=== PATIENT | male | born 1945 | race Caucasian/White ===

== ENCOUNTER 2016-10-09 17:07 | Emergency (ER) | payer MEDICARE ==
[2016-10-09 18:08] LABS: BASOPHILS 0.1 % (0.0-2.0); EOSINOPHILS 0 % (0-7); HEMATOCRIT 41.4 % (42.0-54.0); HEMOGLOBIN 13.8 g/dL (13.5-17.5); IMMATURE GRANULOCYTES 0.4 % (0-5); LYMPHOCYTES 9.9 % (15-50); MCH 28.5 pg (26.0-34.0); MCHC 33.3 g/dL (31.0-37.0); MCV 85.5 fL (80.0-100.0); MEAN PLATELET VOLUME 10.3 fL (7.4-10.4); MONOCYTES 4.1 % (2-11); NEUTROPHILS 85.5 % (40-80); PLATELET COUNT 174 10x3/uL (130-400); RBC 4.84 10x6/uL (4.20-6.10); RDW 13.9 % (11.5-14.5); WBC 13.8 10x3/uL (4.8-10.8)
[2016-10-09 18:19] LABS: APPEARANCE CLEAR (CLEAR); BILIRUBIN 2+ (NEGATIVE); COLOR DK YELLOW (YELLOW); GLUCOSE NEGATIVE (NEGATIVE); KETONE NEGATIVE (NEGATIVE); LEUKOCYTE ESTERASE TRACE (NEGATIVE); NITRITE NEGATIVE (NEGATIVE); PROTEIN 1+ mg/dL (NEGATIVE); UROBILINOGEN NORMAL (NORMAL)
[2016-10-09 18:21] LABS: BACTERIA MODERATE /hpf (NONE SEEN); EPITHELIAL CELLS 0-5 /hpf (0-5); GRANULAR CAST 0-5 /lpf (NONE SEEN); HYALINE CAST 0-5 /lpf (NONE SEEN); MUCUS >1+ /lpf (NONE SEEN); RED CELLS - URINE 0-5 /hpf (0-5); WHITE CELLS - URINE 0-5 /hpf (0-5)
[2016-10-09 18:38] LABS: ALBUMIN 3.2 g/dL (3.4-5.0); ANION GAP 12.5 mmol/L (8-16); BILIRUBIN - TOTAL 1.13 mg/dL (0.2-1.3); CALCIUM 9.8 mg/dL (8.5-10.1); CARBON DIOXIDE 28.1 mmol/L (21.0-32.0); CREATININE - SERUM 1.7 mg/dL (0.6-1.3); POTASSIUM - SERUM 3.6 mmol/L (3.5-5.1); PROTEIN - SERUM 7.1 g/dL (6.4-8.2)
[2016-10-09 19:44] LABS: TROPONIN-I 0.447 ng/mL (0.000-0.060)
[2016-10-14 17:13] LABS: AEROBE ID Final report (()); RESULT 1 Streptococcus mitis (())
== END 2016-10-09 20:28 | disposition home or self-care (01) ==
LOC: D.ER 17:07
PROVIDERS: Family Medicine
DX: B34.9 Viral infection, unspecified (principal); I50.9 Heart failure, unspecified; S37.009A Unspecified injury of unspecified kidney, initial encounter; X58.XXXA Exposure to other specified factors, initial encounter; Y93.9 Activity, unspecified; Y92.9 Unspecified place or not applicable; I10 Essential (primary) hypertension; E11.9 Type 2 diabetes mellitus without complications

== ENCOUNTER 2017-02-18 15:15 | Inpatient (IN) | payer MEDICARE ==
[~2017-02-18] VITALS: Ht 182.9 cm; Wt 79.4 kg
[2017-02-18 15:31] VITALS: BP 120/77; BMI 23.8
[2017-02-18] MEDS ORDERED: ASPIRIN325 MG PO (15:34)
[2017-02-18] MEDS ORDERED: FUROSEMIDE40 MG PO (15:35)
[2017-02-18] MEDS ORDERED: LOVENOX INJ100 MG/ML SC (15:35)
[2017-02-18] MEDS ORDERED: NOVOLOG100 U/M1 SC (15:36)
[2017-02-18] MEDS ORDERED: LISINOPRIL2.5 MG PO (15:37)
[2017-02-18] MEDS ORDERED: PROTONIX40 MG PO (15:37)
[2017-02-18] MEDS ORDERED: K-DUR20 MEQ PO (15:39)
--- NOTE | 2017-02-18 18:04 | NUR ---
PT RESTING IN BED WITH EYES OPEN CALL LIGHT IN REACH NO PROBLEMS WILL MONITER
--- NOTE | 2017-02-18 19:35 | NUR ---
ASSISTED PATIENT TO AMBULATE TO BR, AND BACK TO BED AFTER TOILETING. DENIES CURRENT NEEDS.
[2017-02-18 21:45] VITALS: BP 128/62
--- NOTE | 2017-02-18 21:45 | NUR ---
ASSESSMENT AND HS MEDS COMPLETE. DENIES NEEDS. FSBS 116. GAVE PATIENT HS SNACK.
--- NOTE | 2017-02-18 23:35 | NUR ---
RESTING QUIETLY IN BED ON LEFT SIDE, EYES CLOSED. NO DISTRESS EVIDENT.
--- NOTE | 2017-02-19 02:30 | NUR ---
PATIENT BRIEFLY AWAKE. DENIES NEEDS. CHECKED TO INSURE HE HAD A LIFEVEST BATTERY CHARGING.
--- NOTE | 2017-02-19 04:45 | NUR ---
RESTING IN BED ON RIGHT SIDE SINCE ASSIST UP TO BR TO URINATE 0330 HRS. RESPIRATIONS UNLABORED.
--- NOTE | 2017-02-19 05:40 | NUR ---
FSBS 109. ASSISTED PATIENT UP TO BR AND BACK TO BED AFTER TOILETING. PATIENT BOTH URINATED AND HAD A MEDIUM FORMED, LIGHT BROWN STOOL. NOW BACK SEATED AT BEDSIDE FOR A CHANGE OF POSITION.
[2017-02-19 07:20] VITALS: BP 125/77
--- NOTE | 2017-02-19 07:20 | NUR ---
RESTING QUIETLY IN BED.DENIES NEEDS.ASSESSMENT COMPLETED.LIFE VEST DEFIBRILLATOR ON.WILL CONTINUE WITH PLAN OF CARE.CL IN EASY REACH,BED IN LOW POSITION.
[2017-02-19 09:34] LABS: BASOPHILS 0.6 % (0-2); EOSINOPHILS 7.5 % (0-7); HEMATOCRIT 44.1 % (42.0-54.0); HEMOGLOBIN 14.3 g/dL (13.5-17.5); IMMATURE GRANULOCYTES 0.6 % (0-5); LYMPHOCYTES 28.5 % (15-50); MCH 27.6 pg (26.0-34.0); MCHC 32.4 g/dL (31.0-37.0); MCV 85.1 fL (80.0-100.0); MEAN PLATELET VOLUME 10.9 fL (7.4-10.4); MONOCYTES 4.6 % (2-11); NEUTROPHILS 58.2 % (40-80); RBC 5.18 10x6/uL (4.20-6.10); RDW 15.3 % (11.5-14.5); WBC 5.4 10x3/uL (4.8-10.8)
[2017-02-19 09:36] LABS: CALC OSMOLALITY 282 mosm/kg (275-300); CALCIUM 9.3 mg/dL (8.5-10.1); CARBON DIOXIDE 26.6 mmol/L (21.0-32.0); CHLORIDE - SERUM 105 mmol/L (98-107); GLUCOSE 158 mg/dL (74-106); POTASSIUM - SERUM 4.1 mmol/L (3.5-5.1); SODIUM 140 mmol/L (136-145); UREA NITROGEN 16 mg/dL (7-18); eGFR NON AFRICAN AMERICAN 78 mL/min (90-120)
[2017-02-19 09:41] LABS: PLATELET COUNT 234 10x3/uL (130-400)
[2017-02-19 13:15] VITALS: Ht 182.9 cm; Wt 79.4 kg
--- NOTE | 2017-02-19 19:30 | NUR ---
LYING ON LEFT SIDE, AWAKE. DENIES NEEDS.
[2017-02-19 21:30] VITALS: BP 135/80
--- NOTE | 2017-02-19 21:30 | NUR ---
ASSESSMENT AND HS MEDS COMPLETE. FSBS 159. GAVE PATIENT 4 UNITS HUMALOG INSULIN SC IN LEFT ARM PER S/S. GAVE PATIENT HS SNACK AND ASSISTED HIM TO AMBULATE SBA c R/W TO BR COMMODE TO URINATE, AND THEN BACK TO BED.
--- NOTE | 2017-02-19 22:20 | NUR ---
RESTING QUIETLY ON RIGHT SIDE, EYES CLOSED.
--- NOTE | 2017-02-20 00:10 | NUR ---
RESTING IN BED ON RIGHT SIDE, EYES CLOSED.
--- NOTE | 2017-02-20 02:30 | NUR ---
RESTING IN BED, EYES CLOSED. WAS UP WITH ASSIST AT 0130 TO BR, AND WAS RETURNED BACK TO BED AFTER URINATING AND HAVING A LARGE FORMED BM.
--- NOTE | 2017-02-20 04:55 | NUR ---
PATIENT SHOWERED WITH ASSIST AFTER TURNING OFF AND REMOVING LIFEVEST. ON COMPLETION OF SHOWERING, BATTERY WAS CHANGED AND LIVEVEST DONNED. SELF TEST AND CONTINUITY TEST WERE SUCCESSFUL. PATIENT THEN COMPLETED DRESSING AND GOT INTO BED. ALL LINENS WERE CHANGED. PATIENT SHOWERED WITH STANDBY LEVEL OF ASSIST.
--- NOTE | 2017-02-20 05:45 | NUR ---
IN BED, EYES CLOSED. NO DISTRESS NOTED.
[2017-02-20 07:30] VITALS: BP 147/82
--- NOTE | 2017-02-20 19:10 | NUR ---
IN BED, LYING ON RIGHT SIDE. DENIES NEEDS. SAYS HE IS BORED.
[2017-02-20 21:15] VITALS: BP 113/62
--- NOTE | 2017-02-20 22:35 | NUR ---
VS WERE TAKEN AND ASSESSMENT INITIATED @ 2114. ASSESSMENT NOW COMPLETE. GAVE PATIENT HS MEDS. FSBS 144. GAVE PATIENT HS SNACK. PATIENT DENIES NEEDS.
--- NOTE | 2017-02-20 23:45 | NUR ---
RESTING QUIETLY ON RIGHT SIDE. NO DISTRESS EVIDENT.
--- NOTE | 2017-02-21 02:10 | NUR ---
IN BED RESTING ON LEFT SIDE. APPEARS COMFORTABLE.
--- NOTE | 2017-02-21 04:10 | NUR ---
RESTING QUIETLY IN BED, EYES CLOSED SINCE HE RETURNED TO BED AFTER ASSIST TO BR @ 0315. CONTINUES WITH LIFEVEST DEFIB VEST IN PLACE AND ARMED.
--- NOTE | 2017-02-21 05:40 | NUR ---
AWOKE PATIENT FOR SCHEDULED MEDS. FSBS 120 THIS MORNING. GAVE SCHEDULED LOVENOX SC IN RIGHT UPPER ABDOMEN.
[2017-02-21 06:37] LABS: BASOPHILS 0.4 % (0-2); HEMATOCRIT 38.6 % (42.0-54.0); HEMOGLOBIN 12.5 g/dL (13.5-17.5); IMMATURE GRANULOCYTES 0.8 % (0-5); LYMPHOCYTES 29.8 % (15-50); MCH 27.4 pg (26.0-34.0); MCHC 32.4 g/dL (31.0-37.0); MCV 84.6 fL (80.0-100.0); MEAN PLATELET VOLUME 10.4 fL (7.4-10.4); MONOCYTES 6.8 % (2-11); NEUTROPHILS 55.2 % (40-80); PLATELET COUNT 184 10x3/uL (130-400); RBC 4.56 10x6/uL (4.20-6.10); RDW 15.6 % (11.5-14.5); WBC 4.9 10x3/uL (4.8-10.8)
[2017-02-21 06:57] LABS: CALC OSMOLALITY 284 mosm/kg (275-300); CALCIUM 8.7 mg/dL (8.5-10.1); CHLORIDE - SERUM 106 mmol/L (98-107); CREATININE - SERUM 0.9 mg/dL (0.6-1.3); GLUCOSE 120 mg/dL (74-106); POTASSIUM - SERUM 3.8 mmol/L (3.5-5.1); SODIUM 142 mmol/L (136-145); UREA NITROGEN 15 mg/dL (7-18); eGFR NON AFRICAN AMERICAN 88 mL/min (90-120)
--- NOTE | 2017-02-21 07:31 | NUR ---
RESTING QUIETLY IN BED CALL LIGHT IN REACH
[2017-02-21 09:08] VITALS: BP 147/83
--- NOTE | 2017-02-21 10:09 | NUR ---
MORNING MEDICATION GIVEN, PT TOLERATED WELL, PT STATES PAIN AT A 0. WILL CONTINUE TO MONITOR, PT IN THERAPY.
--- NOTE | 2017-02-21 13:13 | NUR ---
ASSISTED PT TO BATHROOM AND BACK TO BED VIA WALKER, PT TOLERATED WELL, WILL CONTINUE TO MONITOR, CALL LIGHT WITHIN REACH.
--- NOTE | 2017-02-21 15:25 | NUR ---
PT IN BED WATCHING TV, PT STATES NO NEEDS AT THIS TIME, WILL CONTINUE TO MONITOR, CALL LIGHT WITHIN REACH.
--- NOTE | 2017-02-21 17:22 | NUR ---
PT SITTING IN BED WATCHING TV, PT STATES NO NEEDS AT THIS TIME, WILL CONTINUE TO MONITOR, CALL LIGHT WITHIN REACH.
[2017-02-21 19:04] VITALS: BP 135/87
--- NOTE | 2017-02-21 19:30 | NUR ---
PT TALKING ON CELLPHONE. DENIES ANY NEEDS.
--- NOTE | 2017-02-22 01:00 | NUR ---
ASSISTED PT TO BATHROOM SBA PER WALKER.
--- NOTE | 2017-02-22 01:19 | NUR ---
PT UP TO BATHROOM, AMBULATES WITH SBA WITH WALKER.
--- NOTE | 2017-02-22 05:24 | NUR ---
ASSISTED PT WITH CHANGING OUT LIFE VEST DEFIB BATTERY. PT UNDERSTANDS THE MAINTENANCE OF THE MACHINE. PT CONVERSIVE. DENIES ANY PAIN.
[2017-02-22 08:00] VITALS: BP 145/79
--- NOTE | 2017-02-22 08:00 | NUR ---
PATIENT SITTING UP ON THE SIDE OF THE BED TO EAT BREAKFAST. ALERT/ORIENT X4. CALL LIGHT WITHIN REACH. VOICES NO NEEDS AT THIS TIME
--- NOTE | 2017-02-22 10:53 | NUR ---
PATIENT IN REHAB ROOM. WORKING WITH PHYICAL THERAPIST. DENIES ANY PAIN/DISC AT THIS TIME
--- NOTE | 2017-02-22 12:00 | NUR ---
GLUCOSE LEVEL 138. NO SLIDING SCALE INSULIN GIVEN
--- NOTE | 2017-02-22 14:23 | NUR ---
PATIENT USING CALL LIGHT TO USE BATHROOM. PATIENT IS A STAND BY ASST FROM BED INTO BATHROOM.
--- NOTE | 2017-02-22 16:41 | NUR ---
GLUCOSE LEVEL 134. NO SLIDING SCALE INSULIN GIVEN
--- NOTE | 2017-02-22 18:44 | NUR ---
RESTING QUIETLY IN BED CALL LIGHT IN REACH
--- NOTE | 2017-02-22 19:40 | NUR ---
ASSISTED SBA WITH WALKER TO BATHROOM. PT STATES HE IS SORE FROM THERAPY.
[2017-02-22 21:39] VITALS: BP 129/84
--- NOTE | 2017-02-23 01:10 | NUR ---
PT NETWORK DIAGNOSTIC SUPPORT SPECIALIST LIGHT, PT UP TO BR VIA WALKER WITH ASSISTANCE, PT TO COMMODE, HAD SMALL BM, PT BACK TO BED, DENIES FURTHER NEEDS OR PAIN
--- NOTE | 2017-02-23 03:00 | NUR ---
pt states he is having dizziness, has had for some time, however pt states it seems to be getting worse. pt states goes away when in lying position, when sitting up he states for example as he point to his room door that he sees waves. left message for dr. chavira.
[2017-02-23 06:13] LABS: BASOPHILS 0.2 % (0-2); EOSINOPHILS 6.8 % (0-7); HEMATOCRIT 38.8 % (42.0-54.0); HEMOGLOBIN 12.6 g/dL (13.5-17.5); IMMATURE GRANULOCYTES 0.5 % (0-5); LYMPHOCYTES 32.1 % (15-50); MCH 27.3 pg (26.0-34.0); MCHC 32.5 g/dL (31.0-37.0); MCV 84.2 fL (80.0-100.0); MEAN PLATELET VOLUME 10.6 fL (7.4-10.4); MONOCYTES 7.2 % (2-11); NEUTROPHILS 53.2 % (40-80); PLATELET COUNT 177 10x3/uL (130-400); RBC 4.61 10x6/uL (4.20-6.10); RDW 15.7 % (11.5-14.5); WBC 4.4 10x3/uL (4.8-10.8)
--- NOTE | 2017-02-23 06:26 | NUR ---
assisted pt to bathroom with sba, pt uses walker with steady gait.
[2017-02-23 06:28] LABS: CALC OSMOLALITY 286 mosm/kg (275-300); CALCIUM 8.6 mg/dL (8.5-10.1); CARBON DIOXIDE 28.4 mmol/L (21.0-32.0); CHLORIDE - SERUM 107 mmol/L (98-107); CREATININE - SERUM 0.8 mg/dL (0.6-1.3); GLUCOSE 112 mg/dL (74-106); POTASSIUM - SERUM 3.6 mmol/L (3.5-5.1); SODIUM 143 mmol/L (136-145); UREA NITROGEN 15 mg/dL (7-18); eGFR NON AFRICAN AMERICAN > 90 mL/min (90-120)
--- NOTE | 2017-02-23 08:00 | NUR ---
SITTING UP ON SIDE OF BED.CL IN REACH.
[2017-02-23 08:10] VITALS: BP 152/62
--- NOTE | 2017-02-23 08:14 | NUR ---
PATIENT ALERT/ORIENT X4. SITTING UP AT THE SIDE OF THE BED TO EAT BREAKFAST.
--- NOTE | 2017-02-23 10:20 | NUR ---
PATIENT HELPED WITH SHOWER BY OCCUPATIONAL THERAPIST. LIFE VEST REMOVED BEFORE SHOWER.
--- NOTE | 2017-02-23 11:30 | NUR ---
GLUCOSE LEVEL 127. NO SLIDING SCALE INSULIN GIVEN.
--- NOTE | 2017-02-23 13:18 | NUR ---
CARE PLAN MEETING. DR Aliyah BARGER INTO SEE PATIENT. NO NEW ORDERS RECEIVED
--- NOTE | 2017-02-23 15:33 | NUR ---
PATIENT USING CALL LIGHT TO USE BATHROOM. PATIENT IS STANDBY ASST WITH WHEELED WALKER FROM BED TO BATHROOM
--- NOTE | 2017-02-23 16:48 | NUR ---
CARE TEAM MEETING: PATIENT PROGRESSING WELL IN THERAPY PLANS ARE FOR PATIENT TO RETURN HOME. TENATIVE DISCHARGE DATE IS 03/01/17. WILL CONTINUE TO FOLLOW WITH PATIENT UNTIL DISCHARGED
--- NOTE | 2017-02-23 17:00 | NUR ---
GLUCOSE LEVEL 117. NO SLIDING SCALE INSULIN GIVEN
[2017-02-23 19:07] VITALS: BP 152/96
--- NOTE | 2017-02-23 19:30 | NUR ---
PT RESTING QUIETLY, NO S/S OF ACUTE DISTRESS, RESPIRATIONS REGULAR AND UNLABORED.
--- NOTE | 2017-02-24 00:10 | NUR ---
PT RESTING QUIETLY, USES CALL LIGHT FOR ASSISTANCE, DEMONSTRATES NO S/S OF IMPULSIVITY. LIFE VEST ON, PT CHECKED DEVICE AND ALL LIGHTS ARE GREEN. NO S/S OF ACUTE DISTRESS.
--- NOTE | 2017-02-24 01:24 | NUR ---
ASSISTED SBA FOR PT TO AMBULATE WITH ROLLING WALKER TO [facility], PT STATES HE PASSED 'LOTS' OF GAS AND FEELS BETTER. PT STATES HIS LOWER LEGS TAKE LONGER TO WARM UP.
--- NOTE | 2017-02-24 03:52 | NUR ---
PT RESTING QUIETLY, EYES CLOSED, RESPIRATIONS REGULAR AND UNLABORED, NO S/S OF ACUTE DISTRESS.
--- NOTE | 2017-02-24 07:40 | NUR ---
PT IS RESTING IN BED WITH EYES OPEN. ALERT AND ORIENTED X 4. DENIES ACUTE DISCOMFORT AT THIS TIME. LIFEVEST IS ON AND INTACT. PT ASSISTED TO THE BATHROOM WITH SBA. VOIDED WITHOUT DIFFICULTY. SBA WITH TOILETING. SR'S ARE UP X 2 IN BED. CALL LIGHT AND BESIDE TABLE ARE WITHIN EASY REACH.
--- NOTE | 2017-02-24 09:42 | NUR ---
PT IS PARTICIPATING IN THERAPY AT THIS TIME.
[2017-02-24 11:34] VITALS: BP 156/87
--- NOTE | 2017-02-24 12:07 | RHP ---
PATIENT: TEX GALVEZ MEDICAL RECORD: [id number] ACCOUNT: [id number] LOCATION:[id number] : 41 ADMISSION DATE: 02/18/17 REHABILITATION HISTORY AND PHYSICAL EXAMINATION POST ADMISSION PHYSICIAN EXAMINATION Post-admission Physical Examination and History and Physical DATE OF ADMISSION: 02/18/2017 ADMITTING DIAGNOSIS: Critical aortic stenosis, acute respiratory failure, and ventricular tachycardia. HISTORY OF PRESENT ILLNESS: The patient is a 71-year-old gentleman with extensive medical history including aortic stenosis, hypertension, hyperlipidemia, diabetes. Over the past 12 months he has had progressive shortness of breath and was diagnosed with severe aortic stenosis in December. He has an EF of 30%. He was evaluated for aortic valve replacement; however, he suffered an embolic CVA. 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 He was started on Coumadin. After 2-3 weeks, he was discharged to rehab. Approximately 1 week after discharge from rehabilitation, he had acute onset of shortness of breath. After 2 days, he was admitted to [facility] and workup revealed moderate bilateral pulmonary effusions with pulmonary edema. He eventually required intubation, had several episodes of V-tach, V-fib, and torsades requiring electrical cardioversion, brief CPR, cardiogenic shock requiring pressure therapy. Several attempts were made to extubate him, requiring almost immediate reintubation secondary to pulmonary edema. He was transferred to [facility] for further evaluation for aortic stenosis. He underwent successful balloon aortic valvuloplasty on February 09 by ____ and was extubated on February 11. He is now weaned off O2. He has a LifeVest in place. Telemetry demonstrates occasional PVCs and trigeminy. He would like to get his strength back and hopefully return home. COMORBIDITIES: Include critical aortic stenosis, [id number] congestive heart failure, respiratory failure, sustained V-tach, embolic CVA, diabetes, hyperlipidemia, cardiogenic shock. PAST MEDICAL HISTORY: Significant for aortic stenosis, hypertension, hyperlipidemia, [id number] diabetes mellitus. PAST SURGICAL HISTORY: Includes this successful balloon aortic valvuloplasty. ALLERGIES: No known drug allergies. CURRENT MEDICATIONS: Include potassium 20 mEq daily. He is on Protonix 40 mg daily, furosemide 40 mg daily, aspirin 325 mg daily. He is on glucose 1 tab replacement as needed for low sugar. He is on glucagon p.r.n. He is on insulin, Humalog, sliding scale, lisinopril 2.5 mg b.i.d., enoxaparin 100 mg q.12 hours, and polyethylene glycol 17 grams in 8 ounces of water daily. HABITS: No alcohol or tobacco use. FAMILY HISTORY: Noncontributory. SOCIAL HISTORY: The patient once again hopes to return back home and get back HISTORY AND PHYSICAL [id number] TEX GALVEZ to his prior level of function. He is . REVIEW OF SYSTEMS: GENERAL: Does complain of weakness. HEENT: Denies cold, cough, or congestion. CARDIOVASCULAR: Denies any chest pain at this time. PHYSICAL EXAMINATION: VITAL SIGNS: Stable, afebrile. GENERAL: A well-developed gentleman in no acute distress, alert upon exam. HEENT: Normocephalic and atraumatic. Mucosa moist. NECK: Supple. No lymphadenopathy. LUNGS: Clear. HEART: Regular rate and rhythm. ABDOMEN: Benign. EXTREMITIES: No clubbing, cyanosis or edema. NEUROLOGIC: Intact. LABORATORY DATA: His white count is 5.4, H&H of 14 and 44, and platelet count was noted to be 234. Sodium is 140, potassium 4.1, BUN and creatinine of 16 and 1.0 and blood sugar is noted to be 158. ASSESSMENT: This is a 71-year-old gentleman admitted to the rehab with a working diagnosis of critical aortic stenosis, status post successful balloon and angioplasty. The patient has potential to make improvement. We instituted the following multidisciplinary therapies include, but not limited to physical, occupational, respiratory, speech, nutritional services, prosthetics and orthotics. Given his complex condition and risk for more complications, rehabilitation services cannot be provided at a low level of care such as a senior living facility. PLAN: 1. Admit to [facility] rehab for intensive inpatient therapy to include the following disciplines: A. Physical therapy to improve gait, all transfer skills and bed mobility to a modified independent level. B. Occupational therapy to improve activities of daily living to a modified independent level. C. Case management to assist with discharge planning and placement options. D. Nutrition to assist with nutritional needs. E. Rehabilitation nursing to assist in monitoring the patient's underlying medical conditions and to assist with any type of bowel or bladder management. 2. The patient's current medication and medical care will be continued. 3. The patient will be placed on standard fall precautions. 4. The patient's estimated length of stay is approximately 7-10 days. 5. Staff has already had medical update on his LifeVest. May understand what can and cannot be done with it. 6. We will discuss this patient during care team staff meeting this week. TRANSINT:[id number] Voice Confirmation ID: [id number] DOCUMENT ID: [id number] ARMINDA notes whether there has been none or any medical/functional change since admission: - HISTORY AND PHYSICAL [id number] TEX GALVEZ attests patient continues to be appropriate for IRF: - GAEL BARGER MD at 1207 CC: [id number] DICTATION DATE: 02/19/17 1358 MARINE UNDERWRITER: 02/20/[address] [facility] [address] [id number]
--- NOTE | 2017-02-24 12:25 | NUR ---
PT IS SITTING IN HER WC IN HER ROOM FEEDING SELF LUNCH. NO ACUTE DISTRESS NOTED.
--- NOTE | 2017-02-24 14:37 | NUR ---
PT IS IN THERAPY AT THIS TIME.
--- NOTE | 2017-02-24 16:00 | NUR ---
DENIES NEEDS.RICK THERAPY.
--- NOTE | 2017-02-24 17:33 | NUR ---
PT IS FEEDING SELF SUPPER IN HIS ROOM. NO COMPLAINT VOICED.
--- NOTE | 2017-02-24 19:00 | NUR ---
SITTIGN UP ON BEDSIDE. DENIES NEEDS.
[2017-02-24 20:10] VITALS: BP 146/81
--- NOTE | 2017-02-24 21:45 | NUR ---
ASSESSMENT AND HS MEDS COMPLETE. FSBS 221. GAVE PATIENT 8 UNITS HUMALOG S/S INCULIN SC IN LEFT UPPER ARM. GAVE PATIENT HS SNACK ALSO. EARLIER ASSISTED HIM TO AMBULATE TO BR WITH R/W AND BACK TO BED. OFFERED HIM A BED ALARM WAIVER. PATIENT DECLINED AND SAID HE CATHY CALL FOR ASSIST. BED ALARM IS ARMED.
--- NOTE | 2017-02-25 | NUR ---
RESTING IN BED ON RIGHT SIDE. NO DISTRESS NOTED.
--- NOTE | 2017-02-25 02:00 | NUR ---
ASSISTED PATIENT UP TO BR. WILL CALL WHEN FINISHED.
--- NOTE | 2017-02-25 04:00 | NUR ---
RESTING IN BED ON RIGHT SIDE. RESPIRATIONS QUIET AND UNLABORED.
--- NOTE | 2017-02-25 06:00 | NUR ---
FSBS 105. GAVE PATIENT SCHEDULED MEDS AND ASSISTED HIM UP TO BR WHERE HE URINATED AND HAD A MEDIUM VOLUME SOFT BM. PATIENT CHANGED BATTERY IN LIFEVEST.
[2017-02-25 07:11] LABS: BASOPHILS 0.5 % (0-2); EOSINOPHILS 8.3 % (0-7); HEMATOCRIT 37.7 % (42.0-54.0); HEMOGLOBIN 12.2 g/dL (13.5-17.5); IMMATURE GRANULOCYTES 0.3 % (0-5); LYMPHOCYTES 28.1 % (15-50); MCH 27.4 pg (26.0-34.0); MCHC 32.4 g/dL (31.0-37.0); MCV 84.5 fL (80.0-100.0); MEAN PLATELET VOLUME 10.5 fL (7.4-10.4); MONOCYTES 9.3 % (2-11); NEUTROPHILS 53.5 % (40-80); PLATELET COUNT 163 10x3/uL (130-400); RBC 4.46 10x6/uL (4.20-6.10); RDW 15.9 % (11.5-14.5)
[2017-02-25 07:21] LABS: CALC OSMOLALITY 286 mosm/kg (275-300); CALCIUM 8.5 mg/dL (8.5-10.1); CARBON DIOXIDE 27.6 mmol/L (21.0-32.0); CHLORIDE - SERUM 107 mmol/L (98-107); CREATININE - SERUM 0.9 mg/dL (0.6-1.3); GLUCOSE 116 mg/dL (74-106); POTASSIUM - SERUM 3.5 mmol/L (3.5-5.1); SODIUM 143 mmol/L (136-145); UREA NITROGEN 14 mg/dL (7-18); eGFR NON AFRICAN AMERICAN 88 mL/min (90-120)
--- NOTE | 2017-02-25 07:39 | NUR ---
RESTING QUIETLY IN BED CALL LIGHT IN REACH
--- NOTE | 2017-02-25 10:00 | NUR ---
PT RETURNED TO ROOM AFTER THERAPY. NO COMPLAINT VOICED. WATCHING TV.
[2017-02-25 11:16] VITALS: BP 149/78
--- NOTE | 2017-02-25 15:23 | NUR ---
RESTING IN BED WITH EYES CLOSED.
--- NOTE | 2017-02-25 17:46 | NUR ---
PT RESTING IN BED WITH EYES OPEN. AWAITING SUPPER. NO NEEDS VOICED.
[2017-02-25 19:08] VITALS: BP 136/87
--- NOTE | 2017-02-25 19:40 | NUR ---
ASSISTED PATIENT UP TO BR, AMBULATING SBA WITH R/W.
--- NOTE | 2017-02-25 21:20 | NUR ---
ASSESSMENT AND HS MEDS COMPLETE. DENIES NEEDS.
--- NOTE | 2017-02-25 22:05 | NUR ---
RESTING QUIETLY ON RIGHT SIDE. NO DISTRESS NOTED.
--- NOTE | 2017-02-26 | NUR ---
RESTING IN BED ON RIGHT SIDE, EYES CLOSED.
--- NOTE | 2017-02-26 01:50 | NUR ---
RESTING QUIETLY ON RIGHT SIDE AFTER ASSIST UP TO COMMODE IN THE LAST HOUR.
--- NOTE | 2017-02-26 04:45 | NUR ---
RESTING IN BED, EYES CLOSED. RESPIRATIONS UNLABORED.
--- NOTE | 2017-02-26 07:30 | NUR ---
PT IS FEEDING SELF BREAKFAST IN HIS ROOM. NO NEEDS VOICED. ALERT AND ORIENTED X 2. LIFE VEST IS ON AND INTACT. PT DENIES PAIN OR DISCOMFORT. SR'S ARE UP X 2 IN BED. CALL LIGHT AND BEDSIDE TABLE ARE WTIHIN EASY REACH.
[2017-02-26 07:44] VITALS: BP 127/79
--- NOTE | 2017-02-26 09:49 | NUR ---
PT IS PARTICIPATING IN THERAPY AT THIS TIME.
--- NOTE | 2017-02-26 11:38 | NUR ---
PT ASSISTED TO THE BATHROOM WITH SBA. VOIDED WITHOUT DIFFICULTY.
--- NOTE | 2017-02-26 14:17 | NUR ---
PT RESTING IN BED WITH EYES CLOSED.
--- NOTE | 2017-02-26 16:31 | NUR ---
PT IS RESTING IN BED WITH EYES CLOSED. NO DISTRESS NOTED.
--- NOTE | 2017-02-26 18:28 | NUR ---
RESTING QUIETLY IN BED CALL LIGHT IN REACH
[2017-02-26 19:00] VITALS: BP 160/93
--- NOTE | 2017-02-26 19:00 | NUR ---
PATIENT SEATED ON BEDSIDE. DENIES NEEDS.
--- NOTE | 2017-02-26 21:15 | NUR ---
ASSESSMENT AND HS MEDS COMPLETE. FSBS 167. GAVE PATIENT 4 UNITS HUMALOG SLIDING SCALE INSULIN BY SC INJ IN LEFT UPPER ARM. GAVE PATIENT HIS HS SNACK.
--- NOTE | 2017-02-26 22:15 | NUR ---
RESTING QUIETLY ON RIGHT SIDE. NO DISTRESS NOTED.
--- NOTE | 2017-02-27 | NUR ---
RESTING QUIETLY IN BED ON RIGHT SIDE. NO DISTRESS NOTED.
--- NOTE | 2017-02-27 01:15 | NUR ---
ASSISTED PATIENT UP TO BR TO URINATE AND BACK TO BED. PATIENT COMPLAINING OF SORENESS AND PAIN LEVEL OF 6/10 IN RIGHT KNEE. OBTAINED ORDER FOR TYLENOL AND GAVE PATIENT 650MG PO. PROVIDED PATIENT WITH ICE PACK FOR RIGHT KNEE.
--- NOTE | 2017-02-27 02:00 | NUR ---
PATIENT RESTING IN BED, SNORING SOFTLY. ICE PACK REMAINS IN PLACE TO RIGHT KNEE.
--- NOTE | 2017-02-27 04:40 | NUR ---
RESTING IN BED ON RIGHT SIDE. RESPIRATIONS UNLABORED. NO DISCOMFORT NOTED.
--- NOTE | 2017-02-27 06:00 | NUR ---
PATIENT BACK IN BED AFTER SITTING UP ABOUT 20 MINUTES ON BEDSIDE AFTER TOILETING. REFILLED ICE PACK FOR HIS RIGHT KNEE WHICH REMAINS QUITE SORE, BUT LESS PAINFUL THAN EARLIER.
--- NOTE | 2017-02-27 08:30 | NUR ---
SITTING UP EATING BREAKFAST DENIES NEEDS CALL LIGHT IN REACH
--- NOTE | 2017-02-27 09:57 | NUR ---
PT IS RESTING IN BED WITH EYES CLOSED. AWAKENS EASILY TO VERBAL STIMULI. ALERT AND ORIENTED X 4. DENIES ACUTE DISCOMFORT AT THIS TIME. LIFE VEST IS ON AND INTACT.
[2017-02-27 10:29] VITALS: BP 147/81
--- NOTE | 2017-02-27 12:33 | NUR ---
PT SITTING ON THE SIDE OF HIS BED FEEDING SELF LUNCH. NO DISTRESS NOTED.
--- NOTE | 2017-02-27 15:00 | NUR ---
PT IS RESTING IN BED WITH EYES CLOSED. NO DISTRESS NOTED.
--- NOTE | 2017-02-27 17:30 | NUR ---
PT IS FEEDING SELF SUPPER IN BED. NO DISTRESS NOTED.
--- NOTE | 2017-02-27 20:05 | NUR ---
PT HAD LOOSE BROWN STOOL. PT STATES HE HAS HAD TWO TODAY. PT STATES HIS LEFT KNEE IS SORE AND REQUESTED TYLENOL WITH NIGHT TIME MEDS IT HELPED HIM SLEEP LAST NIGHT.
[2017-02-28 02:34] VITALS: BP 135/86
--- NOTE | 2017-02-28 04:45 | NUR ---
PT RESTING WITH EYES CLOSED, RESPIRATIONS REGULAR AND UNLABORED.
--- NOTE | 2017-02-28 05:31 | NUR ---
battery to life pack changed, new battery indicates all green no errors.
--- NOTE | 2017-02-28 06:40 | NUR ---
PT SITTING ON SIDE OF BED, DENIES ANY NEEDS, AMBULATES WITH SBA WITH ROLLING WALKER.
--- NOTE | 2017-02-28 06:43 | NUR ---
PT SITTING ON SIDE OF BED, NO S/S OF ACUTE DISTRESS, VOIDS WITHOUT DIFFICULTY.
[2017-02-28 07:37] LABS: BASOPHILS 0.2 % (0-2); EOSINOPHILS 7.6 % (0-7); HEMATOCRIT 40.9 % (42.0-54.0); HEMOGLOBIN 13.2 g/dL (13.5-17.5); IMMATURE GRANULOCYTES 0.2 % (0-5); LYMPHOCYTES 29.9 % (15-50); MCH 27.5 pg (26.0-34.0); MCHC 32.3 g/dL (31.0-37.0); MCV 85.2 fL (80.0-100.0); MEAN PLATELET VOLUME 10.8 fL (7.4-10.4); MONOCYTES 7.6 % (2-11); NEUTROPHILS 54.5 % (40-80); PLATELET COUNT 148 10x3/uL (130-400); WBC 4.2 10x3/uL (4.8-10.8)
[2017-02-28 07:52] LABS: CALC OSMOLALITY 281 mosm/kg (275-300); CALCIUM 8.9 mg/dL (8.5-10.1); CARBON DIOXIDE 28.2 mmol/L (21.0-32.0); CHLORIDE - SERUM 105 mmol/L (98-107); CREATININE - SERUM 0.8 mg/dL (0.6-1.3); GLUCOSE 123 mg/dL (74-106); POTASSIUM - SERUM 3.8 mmol/L (3.5-5.1); SODIUM 141 mmol/L (136-145); UREA NITROGEN 12 mg/dL (7-18); eGFR NON AFRICAN AMERICAN > 90 mL/min (90-120)
--- NOTE | 2017-02-28 08:15 | NUR ---
SITTING UP EATING BREAKFAST DENIES NEEDS CALL LIGHT IN REACH
--- NOTE | 2017-02-28 08:15 | NUR ---
PT RESTING IN BED WITH EYES OPEN CALL LIGHT IN REACH PT EATING BREAKFAST WILL MONITER
[2017-02-28 12:18] VITALS: BP 140/71
--- NOTE | 2017-02-28 16:31 | NUR ---
PT UP ON SIDE OF BED TALKING TO CALL LIGHT IN REACH NO PROBLEMS WILL MONITER
[2017-02-28 18:59] VITALS: BP 149/98
--- NOTE | 2017-02-28 19:21 | NUR ---
PT STATES HE IS READY TO GO HOME, CONVERSIVE, DENIES ANY NEEDS WATCHING TV.
--- NOTE | 2017-03-01 02:20 | NUR ---
PT UP TO BATHROOM, DENIES PAIN, SOB.
[2017-03-01 10:32] VITALS: BP 151/103
[2017-03-01] MEDS ORDERED: XARELTO20 MG PO (11:06)
[2017-03-01] MEDS ORDERED: MULTI-DAY VITAM1 TAB PO (11:07)
[2017-03-01] MEDS ORDERED: GLIMEPIRIDE2 MG PO (11:07)
[2017-03-01] MEDS ORDERED: VOLTAREN100 GM TOPICAL (11:07)
[2017-03-01] MEDS ORDERED: OMEGA 3 FISH OI1 CAP PO (11:08)
[2017-03-01] MEDS ORDERED: COREG 3.1253.125 MG PO (11:10)
[2017-03-01] MEDS ORDERED: ELIQUIS2.5 MG PO (11:48)
--- NOTE | 2017-03-01 12:15 | NUR ---
PT DISCHARGED TO HOME VIA WHEELCHAIR WITH DAUGHTER PT DISCHARGE MEDS AND SUMMARY REVIEWED PT MEDS CALLED TO [facility] [address] PT HAD NO QUESTIONS OR CONCERNEDS
--- NOTE | 2017-03-01 12:51 | NUR ---
PATIENT DISCHARGING HOME WITH FAMILY. [facility] WILL FOLLOW WITH PATIENT AT HOME. NO NEW DME NEEDED AT THIS TIME. DR. BRAVO 03/07/17 @ 12:15, DR. GLORIA OFFICE WILL CALL PATIENT WITH AN APPOINTMENT. PATIENT CHOICE FORM FOR HOME HEALTH AND [facility] FORM SIGNED, EXPLIANED AND FILED IN CHART.ALL ORDERS HAVE BEEN FAXED WITH CONFORMATION RECIEVED
--- NOTE | 2017-03-01 15:08 | NUR ---
PT RESTING IN BED WITH EYES OPEN CALL LIGHT IN REACH NO PROBLEMS WILL MONITER
--- NOTE | 2017-03-03 11:13 | NUR ---
LATE ENTRY: PATIENT HAS AN APPOINTMENT WITH DR. GLORIA 03/15/17 @ 1:30 CONFIRMED WITH PATIENT AND DOCTORS OFFICE
== END 2017-03-01 15:18 | disposition home health service (06) | DRG 306 ==
LOC: D.REHAB 15:15
PROVIDERS: ADMIT Emergency Medicine
DX: I35.0 Nonrheumatic aortic (valve) stenosis (principal); J96.00 Acute respiratory failure, unspecified whether with hypoxia or hypercapnia; R57.0 Cardiogenic shock; I47.2 Ventricular tachycardia; I50.9 Heart failure, unspecified; E11.9 Type 2 diabetes mellitus without complications; E78.5 Hyperlipidemia, unspecified